=== PATIENT | female | born 1980 | race Caucasian/White ===

== ENCOUNTER 2017-03-06 08:48 | Outpatient (CLI) | payer OTHER | END 2017-03-06 08:49 | disposition home or self-care (01) | LOC: SC 08:48 | PROVIDERS: ATTEND Specialist | DX: G47.50 Parasomnia, unspecified (principal); R06.83 Snoring; F51.4 Sleep terrors [night terrors]; F51.3 Sleepwalking [somnambulism]; G47.8 Other sleep disorders | CPT/HCPCS: 99205; 99212 ==

== ENCOUNTER 2017-04-16 14:45 | Outpatient (CLI) | payer OTHER ==
[2017-04-16] MEDS ORDERED: IOPAMIDOL-300 100 ML VIAL ONE (15:13)
[2017-04-16 15:15] LABS: CREATININE 0.8 mg/dL (0.4-1.0)
[2017-04-16] MEDS ORDERED: IOPAMIDOL-300 100 ML VIAL IVP ONE (15:41)
--- NOTE | 2017-04-16 17:33 | CT Report ---
DATE OF SERVICE: 04/16/2017 CT OF BRAIN WITH AND WITHOUT CONTRAST: 04/16/2017 CLINICAL INDICATION: Head trauma, vertigo, headache, confusion. TECHNIQUE: Axial CT images of the brain were obtained prior to and following 80 mL Isovue [address] is available for comparison. FINDINGS: The ventricles and sulci are normal in size, shape and configuration. The basilar cisterns are patent. There is no evidence of intracranial hemorrhage, mass effect, or midline shift. No abnormal enhancement is identified following contrast administration. There is a mucous retention cyst or polyp in the right frontal sinus. The visualized orbital contents are unremarkable. No calvarial fracture is identified. IMPRESSION: MUCOUS RETENTION CYST OR POLYP IN THE RIGHT FRONTAL SINUS. NO EVIDENCE OF INTRACRANIAL HEMORRHAGE OR MASS. In accordance with CT protocol optimization, one or more of the following dose reduction techniques were utilized for this exam: automated exposure control, adjustment of mA and/or KV based on patient size, or use of iterative reconstructive technique. TD: 04/16/2017 18:32
== END 2017-04-16 14:46 | disposition home or self-care (01) ==
LOC: DI 14:45
PROVIDERS: ATTEND Physician Assistant
DX: S09.90XA Unspecified injury of head, initial encounter (principal)
CPT/HCPCS: 36415; 70470; 82565; Q9967

== ENCOUNTER 2017-08-08 13:50 | Outpatient (CLI) | payer OTHER ==
--- NOTE | 2017-08-08 17:33 | XRAY Report ---
THREE VIEW BILATERAL FEET: 08/08/2017 CLINICAL INDICATION: Pain. COMPARISON: Left foot 12/05/2010. FINDINGS: AP, lateral, oblique views of the bilateral feet demonstrate no evidence of acute fracture or dislocation. The previously noted fracture of the distal end of the proximal phalanx of the left 5th toe has healed. The joint spaces are preserved. No radiopaque foreign body is seen in the soft tissues. IMPRESSION: NO EVIDENCE OF ACUTE FRACTURE. HEALED FRACTURE OF THE DISTAL END OF THE PROXIMAL PHALANX OF THE 5TH TOE. TD: 08/08/2017 14:45
== END 2017-08-08 13:51 | disposition home or self-care (01) ==
LOC: DI.S 13:50
PROVIDERS: ATTEND Physician Assistant
DX: M79.671 Pain in right foot (principal)

== ENCOUNTER 2018-03-09 10:22 | Outpatient (CLI) | payer OTHER ==
--- NOTE | 2018-03-09 13:27 | XRAY Report ---
Reason: PAIN IN RIGHT FOOT Procedure Date: 03/09/2018 Accession Number: [id number] / [id number] Procedure: XR - Foot 2 View RT CPT Code: FULL RESULT: EXAM: RIGHT FOOT RADIOGRAPHY EXAM DATE: 03/09/2018 10:31 AM. CLINICAL HISTORY: Pain in right foot. COMPARISON: XR FOOT COMPLETE MIN 3 VIEWS 12/05/2010 5:46 PM. TECHNIQUE: 2 views. FINDINGS: Bones: Normal. No fractures or bone lesions. Joints: Normal. No subluxations. Soft Tissues: Normal. No soft tissue swelling. IMPRESSION: Normal foot radiography. [facility]
== END 2018-03-09 10:23 | disposition home or self-care (01) ==
LOC: DI 10:22
PROVIDERS: ATTEND Internal Medicine
DX: M79.671 Pain in right foot (principal)

== ENCOUNTER 2018-05-07 11:55 | Outpatient (CLI) | payer OTHER ==
--- NOTE | 2018-05-08 12:38 | XRAY Report ---
Reason: CONTUSION OF FINGER OF LEFT HAND Procedure Date: 05/07/2018 Accession Number: [id number] / [id number] Procedure: XR - Hand 3 View LT CPT Code: FULL RESULT: EXAM: LEFT HAND RADIOGRAPHY EXAM DATE: 05/07/2018 12:22 PM. CLINICAL HISTORY: CONTUSION OF FINGER OF LEFT HAND. Left ring finger pain COMPARISON: None. TECHNIQUE: 3 views. FINDINGS: Bones: No fractures or bone lesions. Joints: No subluxations. Soft Tissues: No soft tissue swelling. IMPRESSION: Normal left hand radiography. [facility]
== END 2018-05-07 11:56 | disposition home or self-care (01) ==
LOC: DI 11:55
PROVIDERS: ATTEND Nurse Practitioner Family
DX: S60.022A Contusion of left index finger without damage to nail, initial encounter (principal)

== ENCOUNTER 2018-06-22 10:10 | Outpatient (CLI) | payer OTHER ==
--- NOTE | 2018-06-22 13:55 | Ultrasound Report ---
Reason: RIGHT BREAST PAIN Procedure Date: 06/22/2018 Accession Number: [id number] / [id number] Procedure: US - Breast Unilateral Limited CPT Code: FULL RESULT: EXAM: Diagnostic Dig Bilat, Breast Unilateral Limited DATE: 06/22/2018 11:24 AM CLINICAL HISTORY: Baseline imaging with focal tenderness right lateral breast for several months. Intermittent/infrequent left lateral breast tenderness. No reported personal or family history of breast cancer. TECHNIQUE: (B) - Bilateral Bilateral CC and MLO views were obtained. Additional spot magnified right CC right MLO and 90 degree lateral views. Real-time ultrasound was performed by both the technologist and the radiologist right breast. COMPARISON: None FINDINGS: Right breast: There is no mammographic finding of concern in the region of the focal tenderness per patient marked with a marker over the lateral breast middle depth. There is a diffuse distribution of punctate and small layering calcifications noted throughout the breast. There are no suspicious masses, calcifications or areas of distortion. Targeted ultrasound at site of focal pain per patient 9:00 5 cm from nipple shows only normal tissues. Two incidental normal intramammary lymph nodes are noted. At 8:00 5 cm from the nipple, an incidental 10 mm simple cyst is noted. A few scattered smaller simple cysts are also noted. Left breast: No suspicious masses, clustered microcalcifications, or regions of architectural distortion are identified. Similar diffuse distribution of punctate and small layering calcifications. PARENCHYMAL PATTERN: (D) - The breasts demonstrate heterogeneously dense fibroglandular parenchyma bilaterally. IMPRESSION: Right breast: Benign imaging findings. No imaging finding of concern to correspond to focal pain per patient lateral breast. Benign. BI-RADS Category 2. Clinical follow-up for symptoms is recommended; patient was advised to return for further evaluation for increase in current symptoms or new symptoms/concerns. From an imaging standpoint, recommend annual screening mammography beginning at age 40, based on average risk. Left breast: Benign. BI-RADS Category 2. Recommend annual screening mammography beginning at age 40, based on average risk. RECOMMENDATION: (ANNUAL) - Recommend routine annual screening mammography. Annual mammography is recommended to begin at age 40, based on average risk. BI-RADS CATEGORY: (2) - Benign Findings STANDARD QUALIFYING STATEMENTS: 1. This examination was not reviewed with the aid of Computer-Aided Detection (CAD). 2. A negative or benign imaging report should not preclude biopsy if clinically suspicious findings are present. 3. Dense breasts may obscure an underlying neoplasm. 4. This examination was reviewed with the aid of 3D breast imaging (tomosynthesis).
== END 2018-06-22 10:11 | disposition home or self-care (01) ==
LOC: DI 10:10
PROVIDERS: ATTEND Internal Medicine
DX: N64.4 Mastodynia (principal)
CPT/HCPCS: 76642; 77066

== ENCOUNTER 2019-12-09 11:56 | Outpatient (CLI) | payer OTHER | END 2019-12-09 11:57 | disposition home or self-care (01) | LOC: COV 11:56 | PROVIDERS: ATTEND Family Medicine | DX: Z20.828 Contact with and (suspected) exposure to other viral communicable diseases (principal) ==

== ENCOUNTER 2020-11-10 15:22 | Outpatient (CLI) | payer OTHER ==
--- NOTE | 2020-11-10 17:16 | XRAY Report ---
PROCEDURE: Forearm LT INDICATIONS: CONTUSION OF LT FOREARM TECHNIQUE: 2 views of the forearm were acquired. COMPARISON: None FINDINGS: Bones: No fractures or dislocations. No suspicious bony lesions. Soft tissues: No suspicious soft tissue calcifications or masses. IMPRESSION: No fracture. No osseous lesion. If there is continued clinical concern for pathology, then advanced i maging (CT, MRI, bone scan) should be considered for further evaluation. Reviewed by: LUIS ENRIQUE Rodas on 11/10/2020 5:14 PM PDT Approved by: Ajit Ren MD on 11/10/2020 5:14 PM PDT Station ID: [id number]
--- NOTE | 2020-11-10 17:16 | XRAY Report ---
PROCEDURE: Wrist 3 View LT INDICATIONS: CONTUSION OF LT FOREARM TECHNIQUE: 3 views of the wrist were acquired. COMPARISON: None FINDINGS: Bones: No fractures or dislocations. No suspicious bony lesions. Scaphoid view: Not obtained. Soft tissues: No suspicious soft tissue calcifications. IMPRESSION: No fracture. No osseous lesion. If there is continued clinical concern for pathology, then advanced i maging (CT, MRI, bone scan) should be considered for further evaluation. Reviewed by: LUIS ENRIQUE Rodas on 11/10/2020 5:14 PM PDT Approved by: Ajit Ren MD on 11/10/2020 5:14 PM PDT Station ID: [id number]
== END 2020-11-10 15:23 | disposition home or self-care (01) ==
LOC: DI.S 15:22
PROVIDERS: ATTEND Family Medicine
DX: S50.12XA Contusion of left forearm, initial encounter (principal)

== ENCOUNTER 2020-11-20 08:55 | Outpatient (CLI) | payer OTHER ==
--- NOTE | 2020-11-21 15:24 | Mammography Report ---
BILATERAL DIGITAL SCREENING MAMMOGRAM 3D/2D WITH EXAGGERATED CC: 11/20/2020 CLINICAL: Routine screening. Comparison is made to exam dated: 06/22/2018 mammogram - [facility]. The tissue of both breasts is extremely dense, which lowers the sensitivity of mammography. There are benign lymph nodes in both breasts. There also are benign diffuse calcifications in both b reasts. No significant masses, calcifications, or other findings are seen in either breast. There has been no significant interval change. IMPRESSION: BENIGN There is no mammographic evidence of malignancy. A 1 year screening mammogram is recommended. This exam was interpreted at Station ID: [id number]. NOTE: For mammograms, a report in lay terms will be sent to the patient. Approximately 15% of breast malignancies will not be visualized mammographically. In the management of a palpable breast mass, a negative mammogram must not discourage biopsy of a clinically suspicious lesion. Electronically Signed By: Juan Douglas M.D. aty/penrad:11/20/2020 10:04:08 ACR BI-RADS Category 2: Benign Finding(s) 3342F PARENCHYMAL PATTERN: (VD) - The breast(s) demonstrate(s) extremely dense parenchyma, limiting the sen sitivity of mammography. BI-RADS CATEGORY: (2) - 2 RECOMMENDATION: (ANNUAL) - Recommend routine annual screening mammography. [id number] 1 year screening LATERALITY: (B)
== END 2020-11-20 08:56 | disposition home or self-care (01) ==
LOC: DI.S 08:55
PROVIDERS: ATTEND Naturopath
DX: Z12.31 Encounter for screening mammogram for malignant neoplasm of breast (principal)

== ENCOUNTER 2021-06-11 14:23 | Outpatient (CLI) | payer OTHER ==
[2021-06-11 20:05] LABS: BASOPHILS % (AUTO) 0.6 %; EOSINOPHILS # (AUTO) 0.1 10^3/uL (0.0-0.7); EOSINOPHILS % (AUTO) 1.9 %; HCT - HEMATOCRIT 37.8 % (37.0-47.0); HGB - HEMOGLOBIN 12.2 g/dL (12.0-16.0); LYMPHOCYTES # (AUTO) 1.5 10^3/uL (1.5-3.5); LYMPHOCYTES % (AUTO) 31.7 %; MEAN CORPUSCULAR HGB CONC 32.3 g/dL (32.0-36.0); MEAN CORPUSCULAR VOLUME 89.8 fL (81.0-99.0); MONOCYTES # (AUTO) 0.4 10^3/uL (0.0-1.0); MONOCYTES % (AUTO) 7.2 %; NEUTROPHILS # (AUTO) 2.8 10^3/uL (1.5-6.6); NEUTROPHILS % (AUTO) 58.4 %; PLT - PLATELET COUNT 303 10^3/uL (130-450); RED BLOOD COUNT 4.21 10^6/uL (4.20-5.40); RED CELL DISTRIBUTION WIDTH 12.5 % (12.0-15.0); WHITE BLOOD COUNT 4.9 x10^3/uL (4.8-10.8)
[2021-06-11 20:20] LABS: ALBUMIN/GLOBULIN RATIO 1.9 (1.0-2.2); BILIRUBIN,TOTAL 0.5 mg/dL (0.2-1.0); CALCIUM 9.3 mg/dL (8.5-10.3); CREATININE 0.7 mg/dL (0.4-1.0); CRP - C-REACTIVE PROTEIN 1.6 mg/dL (0-1.0); POTASSIUM 3.7 mmol/L (3.5-5.0); TOTAL PROTEIN 7.7 g/dL (6.7-8.2)
[2021-06-11 20:34] LABS: FERRITIN 115.2 ng/mL (11.0-306.8)
[2021-06-11 20:37] LABS: FOLATE 15.16 ng/mL (5.90 - >24.8)
== END 2021-06-11 14:24 | disposition home or self-care (01) ==
LOC: LAB.S 14:23
PROVIDERS: ATTEND Naturopath
DX: R10.30 Lower abdominal pain, unspecified (principal); M25.541 Pain in joints of right hand; E56.9 Vitamin deficiency, unspecified
CPT/HCPCS: 36415; 80053; 81599; 82607; 82671; 82728; 82746; 83540; 84144; 84403; 84466; 85025; 86140; 86200; 86430; 86431

== ENCOUNTER 2022-01-16 07:54 | Outpatient (CLI) | payer OTHER ==
--- NOTE | 2022-01-17 12:52 | Mammography Report ---
BILATERAL DIGITAL SCREENING MAMMOGRAM 3D/2D WITH EXAGGERATED CC: 01/16/2022 CLINICAL: Routine screening. Comparison is made to exams dated: 11/20/2020 mammogram and 06/22/2018 mammogram - [facility]. Both breasts are extremely dense, which lowers the sensitivity of mammography (category d />75% gland ular tissue). There are benign lymph nodes in both breasts. There also are benign diffuse calcifications in both b reasts. No significant masses, calcifications, or other findings are seen in either breast. There has been no significant interval change. IMPRESSION: BENIGN There is no mammographic evidence of malignancy. A 1 year screening mammogram is recommended. This exam was interpreted at Station ID: [id number]. NOTE: For mammograms, a report in lay terms will be sent to the patient. Approximately 15% of breast malignancies will not be visualized mammographically. In the management of a palpable breast mass, a negative mammogram must not discourage biopsy of a clinically suspicious lesion. Electronically Signed By: Xavier Madden M.D., jr/josé miguel:01/16/2022 11:40:13 ACR BI-RADS Category 2: Benign Finding(s) 3342F PARENCHYMAL PATTERN: (VD) - The breast(s) demonstrate(s) extremely dense parenchyma, limiting the sen sitivity of mammography. BI-RADS CATEGORY: (2) - 2 RECOMMENDATION: (ANNUAL) - Recommend routine annual screening mammography. [id number] 1 year screening LATERALITY: (B)
== END 2022-01-16 07:55 | disposition home or self-care (01) ==
LOC: DI.S 07:54
PROVIDERS: ATTEND Naturopath
DX: Z12.31 Encounter for screening mammogram for malignant neoplasm of breast (principal)

== ENCOUNTER 2023-06-13 08:18 | Outpatient (CLI) | payer BC, OTHER ==
[2023-06-13 15:10] LABS: BASOPHILS % (AUTO) 0.8 %; EOSINOPHILS # (AUTO) 0.1 10^3/uL (0.0-0.7); EOSINOPHILS % (AUTO) 2.4 %; HCT - HEMATOCRIT 41.3 % (37.0-47.0); LYMPHOCYTES # (AUTO) 1.7 10^3/uL (1.5-3.5); LYMPHOCYTES % (AUTO) 33.2 %; MEAN CORPUSCULAR HEMOGLOBIN 28.3 pg (27.0-31.0); MEAN CORPUSCULAR HGB CONC 31.5 g/dL (32.0-36.0); MEAN CORPUSCULAR VOLUME 89.8 fL (81.0-99.0); MEAN PLATELET VOLUME 11.4 fL (7.9-10.8); MONOCYTES # (AUTO) 0.5 10^3/uL (0.0-1.0); MONOCYTES % (AUTO) 9.1 %; NEUTROPHILS # (AUTO) 2.7 10^3/uL (1.5-6.6); NEUTROPHILS % (AUTO) 54.3 %; PLT - PLATELET COUNT 351 10^3/uL (130-450); RED CELL DISTRIBUTION WIDTH 12.1 % (12.0-15.0)
== END 2023-06-13 08:19 | disposition home or self-care (01) ==
LOC: LAB.S 08:18
PROVIDERS: ATTEND Naturopath
DX: R68.84 Jaw pain (principal)
CPT/HCPCS: 36415; 85025

== ENCOUNTER 2023-08-21 12:39 | Outpatient (CLI) | payer BC ==
[2023-08-21 14:39] LABS: BASOPHILS % (AUTO) 1.1 %; EOSINOPHILS # (AUTO) 0.1 10^3/uL (0.0-0.7); EOSINOPHILS % (AUTO) 2.1 %; HCT - HEMATOCRIT 40.3 % (37.0-47.0); HGB - HEMOGLOBIN 12.8 g/dL (12.0-16.0); LYMPHOCYTES % (AUTO) 26.6 %; MEAN CORPUSCULAR HEMOGLOBIN 27.9 pg (27.0-31.0); MEAN CORPUSCULAR HGB CONC 31.8 g/dL (32.0-36.0); MEAN PLATELET VOLUME 11.1 fL (7.9-10.8); MONOCYTES # (AUTO) 0.3 10^3/uL (0.0-1.0); MONOCYTES % (AUTO) 7.7 %; NEUTROPHILS # (AUTO) 2.4 10^3/uL (1.5-6.6); NEUTROPHILS % (AUTO) 62.5 %; PLT - PLATELET COUNT 327 10^3/uL (130-450); RED BLOOD COUNT 4.58 10^6/uL (4.20-5.40); RED CELL DISTRIBUTION WIDTH 12.4 % (12.0-15.0); WHITE BLOOD COUNT 3.8 x10^3/uL (4.8-10.8)
[2023-08-21 14:57] LABS: BILIRUBIN,URINE NEGATIVE (NEGATIVE); GLUCOSE, URINE (UA) NEGATIVE (NEGATIVE); KETONES,URINE (UA) NEGATIVE (NEGATIVE); LEUKOCYTE ESTERASE, URINE NEGATIVE (NEGATIVE); NITRITE,URINE NEGATIVE (NEGATIVE); OCCULT BLOOD,URINE NEGATIVE (NEGATIVE); PROTEIN,URINE NEGATIVE (NEGATIVE); UROBILINOGEN,URINE 0.2 (NORMAL) E.U./dL (NORMAL)
[2023-08-21 14:59] LABS: CLARITY,URINE CLEAR (CLEAR)
[2023-08-21 15:12] LABS: BACTERIA,URINE None Seen /HPF (None Seen); RBC,URINE None Seen /HPF (0-5); SQUAMOUS EPITHELIAL CELL,UR NONE SEEN (<= Few); WBC,URINE 0-3 /HPF (0-5)
[2023-08-21 15:38] LABS: ALBUMIN 4.4 g/dL (3.2-5.5); BILIRUBIN,TOTAL 0.5 mg/dL (0.2-1.0); CALCIUM 9.4 mg/dL (8.5-10.3); CREATININE 0.8 mg/dL (0.6-1.3); POTASSIUM 3.8 mmol/L (3.5-4.5); TOTAL PROTEIN 6.6 g/dL (6.4-8.9)
[2023-08-21 16:09] LABS: THYROID STIMULATING HORMONE 1.57 uIU/mL (0.34-5.60)
== END 2023-08-21 12:40 | disposition home or self-care (01) ==
LOC: LAB.S 12:39
PROVIDERS: ATTEND Internal Medicine Rheumatology
DX: M25.50 Pain in unspecified joint (principal); M35.01 Sjogren syndrome with keratoconjunctivitis; R76.8 Other specified abnormal immunological findings in serum; N95.8 Other specified menopausal and perimenopausal disorders
CPT/HCPCS: 36415; 80053; 81001; 82672; 84403; 84443; 85025; 87086

== ENCOUNTER 2023-09-09 18:25 | Emergency (ER) | payer BC ==
[2023-09-09 19:27] LABS: BASOPHILS # (AUTO) 0.1 10^3/uL (0.0-0.1); BASOPHILS % (AUTO) 0.8 %; EOSINOPHILS # (AUTO) 0.1 10^3/uL (0.0-0.7); EOSINOPHILS % (AUTO) 1.2 %; HCT - HEMATOCRIT 39.8 % (37.0-47.0); HGB - HEMOGLOBIN 12.7 g/dL (12.0-16.0); LYMPHOCYTES # (AUTO) 1.6 10^3/uL (1.5-3.5); LYMPHOCYTES % (AUTO) 25.3 %; MEAN CORPUSCULAR HEMOGLOBIN 27.9 pg (27.0-31.0); MEAN CORPUSCULAR HGB CONC 31.9 g/dL (32.0-36.0); MEAN CORPUSCULAR VOLUME 87.3 fL (81.0-99.0); MEAN PLATELET VOLUME 10.5 fL (7.9-10.8); MONOCYTES # (AUTO) 0.5 10^3/uL (0.0-1.0); MONOCYTES % (AUTO) 7.7 %; NEUTROPHILS # (AUTO) 4.2 10^3/uL (1.5-6.6); NEUTROPHILS % (AUTO) 64.8 %; PLT - PLATELET COUNT 303 10^3/uL (130-450); RED BLOOD COUNT 4.56 10^6/uL (4.20-5.40); RED CELL DISTRIBUTION WIDTH 12.3 % (12.0-15.0); WHITE BLOOD COUNT 6.5 x10^3/uL (4.8-10.8)
--- NOTE | 2023-09-09 19:32 | ED Physician Documentation ---
PD HPI ABD PAIN - Stated complaint Stated Complaint: RT SIDE ABD PX - Chief complaint Chief Complaint: Abd Pain - History obtained from History obtained from: Patient - History of Present Illness Pain level max: 5 Pain level now: 5 Location: RLQ, Suprapubic, LLQ Associated symptoms: Nausea, Vomiting. No: Fever, Hematemesis, Diarrhea, Constipation, Melena, Hematochezia, Dysuria, Hematuria Recently seen: Not recently seen - Additional information Additional information: Patient is a 43-year-old female who presents to the emergency department complaint of lower abdominal pain. Ongoing for the past week. She states that she had a hysterectomy several years ago, but they left the left ovary. She is status post appendectomy as well. She states occasionally it radiates up her right flank, occasionally down the right leg. No numbness or tingling. No loss of bowel or bladder control. Does not use any IV drugs. No fevers. No chills. No vaginal bleeding or discharge. Worse with movement, better with rest. Review of Systems Constitutional: denies: Fever, Chills Nose: denies: Rhinorrhea / runny nose, Congestion Cardiac: denies: Chest pain / pressure Respiratory: denies: Dyspnea, Cough, Wheezing Skin: denies: Rash Musculoskeletal: denies: Neck pain, Back pain Neurologic: denies: Headache PD PAST MEDICAL HISTORY - Past Medical History Past Medical History: Yes Cardiovascular: None Respiratory: None Neuro: None Endocrine/Autoimmune: None GI: None LANG PATH THERAPIST: None : None HEENT: None Psych: Anxiety Musculoskeletal: None Derm: None - Past Surgical History Past Surgical History: Yes General: Appendectomy, Hiatal hernia repair /LANG PATH THERAPIST: Hysterectomy - Present Medications Home Medications: Ambulatory Orders Medication Instructions Recorded Confirmed No Known Home Medications 09/09/23 09/09/23 - Allergies Allergies/Adverse Reactions: Allergies Allergy/AdvReac Type Severity Reaction Status Date / Time mupirocin [From Bactroban] AdvReac Intermediate Unknown Verified 09/09/23 22:25 mupirocin calcium * AdvReac Intermediate Unknown Verified 09/09/23 22:25 [From Bactroban] Proton Pump Inhibitors AdvReac Hives Verified 09/09/23 22:25 - Social History Does the pt smoke?: No Smoking Status: Never smoker Does the pt drink ETOH?: Yes Does the pt have substance abuse?: No - Immunizations Immunizations are current?: Yes - POLST Patient has POLST: No PD ED PE NORMAL - Vitals Vital signs reviewed: Yes - General General: Alert and oriented X 3, No acute distress - HEENT HEENT: Moist mucous membranes - Neck Neck: Supple, no meningeal sign - Cardiac Cardiac: RRR, Strong equal pulses - Respiratory Respiratory: No respiratory distress, Clear bilaterally - Abdomen Abdomen: Soft, Non distended, Other (mild TTP LLQ, RLQ and suprapubic. no peritoneal signs.) - Back Back: No CVA TTP, No spinal TTP - Derm Derm: Warm and dry - Extremities Extremities: No edema, No calf tenderness / cord - Neuro Neuro: Alert and oriented X 3 - Psych Psych: Normal mood, Normal affect Results - Vitals Vitals: Vital Signs - 24 hr 09/09/23 09/09/23 09/09/23 18:56 19:49 21:34 Temperature 36.8 C Heart Rate 79 65 66 Respiratory 16 18 16 Rate Blood Pressure 142/85 H 129/89 H 135/90 H O2 Saturation 100 98 99 Oxygen O2 Source Room air - Labs Labs: Laboratory Tests 09/09/23 09/09/23 09/09/23 18:59 19:23 19:23 WBC 6.5 RBC 4.56 Hgb 12.7 Hct 39.8 MCV 87.3 MCH 27.9 MCHC 31.9 L RDW 12.3 Plt Count 303 MPV 10.5 Neut # (Auto) 4.2 Lymph # (Auto) 1.6 Burnett # (Auto) 0.5 Eos # (Auto) 0.1 Baso # (Auto) 0.1 Absolute Nucleated RBC 0.00 Nucleated RBC % 0.0 Sodium 137 Potassium 3.4 L Chloride 106 Carbon Dioxide 24 Anion Gap 7.0 BUN 13 Creatinine 0.8 Estimated GFR (MDRD) 79 L Glucose 93 Calcium 9.7 Total Bilirubin 0.8 AST 17 ALT 12 Alkaline Phosphatase 57 Total Protein 7.5 Albumin 5.0 Globulin 2.5 Albumin/Globulin Ratio 2.0 Lipase < 10 L Urine Color YELLOW Urine Clarity CLEAR Urine pH 6.5 Ur Specific [place] <=1.005 Urine Protein NEGATIVE Urine Glucose (UA) NEGATIVE Urine Ketones TRACE Urine Occult Blood NEGATIVE Urine Nitrite NEGATIVE Urine Bilirubin NEGATIVE Urine Urobilinogen 0.2 (NORMAL) Ur Leukocyte Esterase NEGATIVE Ur Microscopic Review NOT INDICATED Urine Culture Comments NOT INDICATED - Rads (name of study) CT abd/pelvis Relevant Findings:: Final report received, See rad report PD Medical Decision Making - ED course Complexity details: reviewed results, re-evaluated patient, considered differential, d/w patient ED course: 43-year-old female with abdominal pain, no acute findings on laboratory testing. CT scan shows a large amount of fecal material in the colon and cecum. Has MiraLAX at home. She would like to try a undiluted Gastrografin here. We we will give this to her. Her abdomen is soft, nontender nondistended on serial exam. No peritoneal signs. Patient is well-appearing, nontoxic. Afebrile. Patient will return if she worsens or fails to improve as expected. She will follow-up with her doctor for further care. Patient counseled regarding signs and symptoms for which I believe and urgent re-evaluation would be necessary. Patient with good understanding of and agreement to plan and is comfortable going home at this time This document was made in part using voice recognition software. While efforts are made to proofread this document, sound alike and grammatical errors may occur. EXAM: [id number] CT/ABPEW ([id number]) PROCEDURE: Abdomen/Pelvis W INDICATIONS: low abd pain, s/p hyst/appy, L ovary present CONTRAST: 100ml [id number] TECHNIQUE: After the administration of intravenous contrast, a CT scan of the abdomen and pelvis was performed. Images were recorded and evaluated at appropriate window settings. Reformats: coronal and sagittal. For radiation dose reduction, the following was used: automated exposure control, adjustment of mA and/or kV according to patient size. COMPARISON: Previous CT dated 05/31/2012 is not available for review. FINDINGS: Image quality: Diagnostic. Lower chest: Unremarkable. Liver: No solid mass. Gallbladder: No radiopaque stones or wall thickening. Biliary tree: No intrahepatic or extrahepatic dilation, accounting for age. Spleen: No splenomegaly. Pancreas: No pancreatic ductal dilation. Adrenals: No adrenal nodule. Kidneys and ureters: No hydronephrosis. No renal cystic lesion which requires follow up. No solid mass. Stomach, bowel and peritoneum: No gastric or small bowel dilation. No abnormal wall thickening. No pathologic free fluid. Moderate fecal burden seen throughout the colon but most pronounced in the region of the cecum and ascending colon. No acute inflammatory changes noted. Lymph nodes: No central or retroperitoneal adenopathy. Vessels: No infrarenal aortic aneurysm. Patent portal vein. PELVIS Reproductive organs: Status post hysterectomy. Bladder: No abnormal wall thickening, accounting for underdistention. Pelvic lymph nodes: No pelvic adenopathy by size criteria. Bones: No aggressive osseous abnormality. Other: No significant ventral or inguinal hernia. IMPRESSION: CT abdomen and pelvis without acute abnormalities. Large amount of fecal material seen throughout the colon but most pronounced in the region of the cecum and ascending colon. Other chronic findings as above Departure - Departure Disposition: 01 Home, Self Care Clinical Impression: Constipation Qualifiers: Constipation type: unspecified constipation type Qualified Code(s): K59.00 - Constipation, unspecified Condition: Good Instructions: ED Constipation Follow-Up: ALLEN VILLAR [Primary Care Provider] - Within 1 week Comments: Your laboratory testing does not show any acute abnormalities today. Your CBC, CMP and urinalysis do not reveal any reason for your pain. Your CT scan is normal other than a large amount of stool throughout your colon, consistent with constipation. You are given a dose of Gastrografin orally here, make sure you drink plenty of water tonight. This usually will resolve the constipation. You can also use MiraLAX at home as needed. Please return if you worsen. EXAM: [id number] CT/ABPEW ([id number]) PROCEDURE: Abdomen/Pelvis W INDICATIONS: low abd pain, s/p hyst/appy, L ovary present CONTRAST: 100ml [id number] TECHNIQUE: After the administration of intravenous contrast, a CT scan of the abdomen and pelvis was performed. Images were recorded and evaluated at appropriate window settings. Reformats: coronal and sagittal. For radiation dose reduction, the following was used: automated exposure control, adjustment of mA and/or kV according to patient size. COMPARISON: Previous CT dated 05/31/2012 is not available for review. FINDINGS: Image quality: Diagnostic. Lower chest: Unremarkable. Liver: No solid mass. Gallbladder: No radiopaque stones or wall thickening. Biliary tree: No intrahepatic or extrahepatic dilation, accounting for age. Spleen: No splenomegaly. Pancreas: No pancreatic ductal dilation. Adrenals: No adrenal nodule. Kidneys and ureters: No hydronephrosis. No renal cystic lesion which requires follow up. No solid mass. Stomach, bowel and peritoneum: No gastric or small bowel dilation. No abnormal wall thickening. No pathologic free fluid. Moderate fecal burden seen throughout the colon but most pronounced in the region of the cecum and ascending colon. No acute inflammatory changes noted. Lymph nodes: No central or retroperitoneal adenopathy. Vessels: No infrarenal aortic aneurysm. Patent portal vein. PELVIS Reproductive organs: Status post hysterectomy. Bladder: No abnormal wall thickening, accounting for underdistention. Pelvic lymph nodes: No pelvic adenopathy by size criteria. Bones: No aggressive osseous abnormality. Other: No significant ventral or inguinal hernia. IMPRESSION: CT abdomen and pelvis without acute abnormalities. Large amount of fecal material seen throughout the colon but most pronounced in the region of the cecum and ascending colon. Other chronic findings as above Forms: PCP List Discharge Date/Time: 09/09/23 21:35
[2023-09-09] MEDS ORDERED: iohexoL-300 100 ML VIAL ONE (19:37)
[2023-09-09 19:38] LABS: BILIRUBIN,URINE NEGATIVE (NEGATIVE); GLUCOSE, URINE (UA) NEGATIVE (NEGATIVE); KETONES,URINE (UA) TRACE mg/dL (NEGATIVE); LEUKOCYTE ESTERASE, URINE NEGATIVE (NEGATIVE); NITRITE,URINE NEGATIVE (NEGATIVE); OCCULT BLOOD,URINE NEGATIVE (NEGATIVE); PH,URINE 6.5 PH (5.0-7.5); PROTEIN,URINE NEGATIVE (NEGATIVE); UROBILINOGEN,URINE 0.2 (NORMAL) E.U./dL (NORMAL)
[2023-09-09 19:40] LABS: CLARITY,URINE CLEAR (CLEAR)
[2023-09-09 19:46] LABS: ALKALINE PHOSPHATASE 57 IU/L (42-121); ALT ALANINE AMINOTRANSFERASE 12 IU/L (10-60); AST ASPARTATE AMINOTRANSFERASE 17 IU/L (10-42); BILIRUBIN,TOTAL 0.8 mg/dL (0.2-1.0); BUN - BLOOD UREA NITROGEN 13 mg/dL (6-20); CALCIUM 9.7 mg/dL (8.5-10.3); CARBON DIOXIDE - CO2 24 mmol/L (21-32); CHLORIDE 106 mmol/L (101-111); CREATININE 0.8 mg/dL (0.6-1.3); GFR - MDRD 79 (>89); GLUCOSE 93 mg/dL (74-104); POTASSIUM 3.4 mmol/L (3.5-4.5); SODIUM 137 mmol/L (135-145); TOTAL PROTEIN 7.5 g/dL (6.4-8.9)
[2023-09-09 19:49] LABS: LIPASE < 10 U/L (11-82)
[2023-09-09] MEDS: iohexoL-300 100 ML VIAL IVP ONE (20:19)
--- NOTE | 2023-09-09 20:31 | CT Report ---
PROCEDURE: Abdomen/Pelvis W INDICATIONS: low abd pain, s/p hyst/appy, L ovary present CONTRAST: 100ml [id number] TECHNIQUE: After the administration of intravenous contrast, a CT scan of the abdomen and pelvis was performed. Images were recorded and evaluated at appropriate window settings. Reformats: coronal and sagittal. F or radiation dose reduction, the following was used: automated exposure control, adjustment of mA and /or kV according to patient size. COMPARISON: Previous CT dated 05/31/2012 is not available for review. FINDINGS: Image quality: Diagnostic. Lower chest: Unremarkable. Liver: No solid mass. Gallbladder: No radiopaque stones or wall thickening. Biliary tree: No intrahepatic or extrahepatic dilation, accounting for age. Spleen: No splenomegaly. Pancreas: No pancreatic ductal dilation. Adrenals: No adrenal nodule. Kidneys and ureters: No hydronephrosis. No renal cystic lesion which requires follow up. No solid mas s. Stomach, bowel and peritoneum: No gastric or small bowel dilation. No abnormal wall thickening. No pa thologic free fluid. Moderate fecal burden seen throughout the colon but most pronounced in the regio n of the cecum and ascending colon. No acute inflammatory changes noted. Lymph nodes: No central or retroperitoneal adenopathy. Vessels: No infrarenal aortic aneurysm. Patent portal vein. PELVIS Reproductive organs: Status post hysterectomy. Bladder: No abnormal wall thickening, accounting for underdistention. Pelvic lymph nodes: No pelvic adenopathy by size criteria. Bones: No aggressive osseous abnormality. Other: No significant ventral or inguinal hernia. IMPRESSION: CT abdomen and pelvis without acute abnormalities. Large amount of fecal material seen throughout the colon but most pronounced in the region of the cecum and ascending colon. Other chronic findings as above Reviewed by: Juan Jackson MD on 09/09/2023 8:29 PM PDT Approved by: Juan Jackson MD on 09/09/2023 8:29 PM PDT Station ID: [id number]
[2023-09-09] MEDS ORDERED: DIATRIZOATE MEGLU/DIATRIZO SOD 30 ML BOTTLE PO ONE (21:24)
[2023-09-09] MEDS: DIATR MEGLU/DIATRIZOATE SODIUM 120 ML BOTTLE PO ONE (21:28)
[2023-09-09 21:38] VITALS: BP 135/90; O2SAT 99
== END 2023-09-09 21:35 | disposition home or self-care (01) ==
LOC: ED 18:25
DX: K59.00 Constipation, unspecified (principal)
CPT/HCPCS: 36415; 74177; 80053; 81003; 83690; 85025; 99284; Q9963; Q9967; 81001; 87086

== ENCOUNTER 2023-09-09 22:04 | Emergency (ER) | payer BC ==
[2023-09-09] MEDS ORDERED: DIATRIZOATE MEGLU/DIATRIZO SOD 30 ML BOTTLE PO ONE (22:43)
[2023-09-09 22:44] VITALS: BP 132/89; O2SAT 100
[2023-09-09] MEDS: ONDANSETRON ODT 4 MG TABLET TL STA (22:53)
[2023-09-09] MEDS: DIATR MEGLU/DIATRIZOATE SODIUM 120 ML BOTTLE PO ONE (23:16)
--- NOTE | 2023-09-09 23:18 | ED Physician Documentation ---
History of Present Illness - Stated complaint Stated Complaint: ABD PX/VOMITED UP MEDS - Chief complaint Chief Complaint: Abd Pain - History obtained from History obtained from: Patient - History of Present Illness Timing: Today - Additonal information Additional information: 43-year-old female was seen here earlier today, diagnosed with constipation, given oral Gastrografin. She drank this but on the car ride home she states that she threw up the Gastrografin. She returned to the emergency department stating that she is nauseated. She is requesting a second dose of Gastrografin. Review of Systems Constitutional: denies: Fever, Chills Skin: denies: Rash Musculoskeletal: denies: Neck pain, Back pain Neurologic: denies: Headache PD PAST MEDICAL HISTORY - Past Medical History Past Medical History: Yes Cardiovascular: None Respiratory: None Neuro: None Endocrine/Autoimmune: None GI: None CHILD STUDY TEAM DIRECTOR: None : None HEENT: None Psych: Anxiety Musculoskeletal: None Derm: None - Past Surgical History Past Surgical History: Yes General: Appendectomy, Hiatal hernia repair /CHILD STUDY TEAM DIRECTOR: Hysterectomy - Present Medications Home Medications: Ambulatory Orders Medication Instructions Recorded Confirmed No Known Home Medications 09/09/23 09/09/23 - Allergies Allergies/Adverse Reactions: Allergies Allergy/AdvReac Type Severity Reaction Status Date / Time mupirocin [From Bactroban] AdvReac Intermediate Unknown Verified 09/09/23 22:25 mupirocin calcium * AdvReac Intermediate Unknown Verified 09/09/23 22:25 [From Bactroban] Proton Pump Inhibitors AdvReac Hives Verified 09/09/23 22:25 - Social History Does the pt smoke?: No Smoking Status: Never smoker Does the pt drink ETOH?: Yes Does the pt have substance abuse?: No - Immunizations Immunizations are current?: Yes - POLST Patient has POLST: No PD ED PE NORMAL - Vitals Vital signs reviewed: Yes - General General: Alert and oriented X 3, No acute distress - HEENT HEENT: Moist mucous membranes - Neck Neck: Supple, no meningeal sign - Cardiac Cardiac: RRR, Strong equal pulses - Respiratory Respiratory: No respiratory distress, Clear bilaterally - Abdomen Abdomen: Soft, Non tender, Non distended - Derm Derm: Warm and dry - Neuro Neuro: Alert and oriented X 3 - Psych Psych: Normal mood, Normal affect Results - Vitals Vitals: Vital Signs - 24 hr 09/09/23 22:18 Temperature 36.3 C L Heart Rate 63 Respiratory 17 Rate Blood Pressure 132/89 H O2 Saturation 100 Oxygen O2 Source Room air PD Medical Decision Making - ED course Complexity details: considered differential, d/w patient ED course: Patient is well-appearing, nontoxic. She had laboratory studies and a CT scan earlier today. Given Zofran here. Given a second dose of Gastrografin. Will have her follow-up with her doctor for further care. Abdomen is soft, nontender nondistended. No indication for repeat testing. Patient counseled regarding signs and symptoms for which I believe and urgent re-evaluation would be necessary. Patient with good understanding of and agreement to plan and is comfortable going home at this time This document was made in part using voice recognition software. While efforts are made to proofread this document, sound alike and grammatical errors may occur. Departure - Departure Disposition: 01 Home, Self Care Clinical Impression: Constipation Qualifiers: Constipation type: unspecified constipation type Qualified Code(s): K59.00 - Constipation, unspecified Vomiting Qualifiers: Vomiting type: unspecified Nausea presence: with nausea Qualified Code(s): R11.2 - Nausea with vomiting, unspecified Abdominal pain Qualifiers: Abdominal location: unspecified location Qualified Code(s): R10.9 - Unspecified abdominal pain Condition: Good Instructions: ED Constipation Comments: Please follow-up as previously instructed. Return if you worsen. You were given Zofran to go home with tonight.
[2023-09-10] MEDS: ONDANSETRON ODT 4 MG Prepack 2 TL PRN (00:01)
== END 2023-09-10 00:01 | disposition home or self-care (01) ==
LOC: ED 22:04
DX: K59.00 Constipation, unspecified (principal); R11.2 Nausea with vomiting, unspecified; R10.9 Unspecified abdominal pain
CPT/HCPCS: 36415; 74177; 80053; 81003; 83690; 85025; 99283; 99284; A9270; Q0162; Q9963; Q9967; 81001; 87086

== ENCOUNTER 2023-09-11 11:35 | Outpatient (CLI) | payer BC ==
--- NOTE | 2023-09-11 19:46 | XRAY Report ---
PROCEDURE: Abdomen 1 V INDICATIONS: CONSTIPATION TECHNIQUE: 1 view of the abdomen were acquired. COMPARISON: None. FINDINGS: Surgical changes and devices: None. Bowel: No pneumoperitoneum. The bowel gas pattern is normal. Stool load within normal limits. Soft tissues: No masses; visualized solid organ contours appear normal in size. No suspicious abdom inal calcifications. Bones: No suspicious bony abnormalities. IMPRESSION: Unremarkable abdominal radiograph Reviewed by: Luis Alberto Reina MD on 09/11/2023 6:45 PM AKDT Approved by: Luis Alberto Reina MD on 09/11/2023 6:45 PM AKDT Station ID: [id number]
== END 2023-09-11 11:36 | disposition home or self-care (01) ==
LOC: DI.S 11:35
PROVIDERS: ATTEND Family Medicine
DX: K59.00 Constipation, unspecified (principal)

== ENCOUNTER 2023-12-15 14:45 | Outpatient (CLI) | payer BC | END 2023-12-15 14:46 | disposition home or self-care (01) | LOC: LAB.S 14:45 | PROVIDERS: ATTEND Registered Nurse | DX: R07.0 Pain in throat (principal) | CPT/HCPCS: 87070; 87077 ==